=== PATIENT | female | born 1940 | race Caucasian/White ===

== ENCOUNTER 2017-01-14 11:34 | Emergency (ER) | payer SELFPAY ==
[~2017-01-14] VITALS: Ht 154.9 cm; Wt 55.0 kg
[2017-01-14] MEDS ORDERED: OMEP10 PO (11:47)
[2017-01-14] MEDS ORDERED: METF500T4 PO (11:47)
[2017-01-14] MEDS ORDERED: LOSA25TA21 PO (11:47)
[2017-01-14] MEDS ORDERED: ACETAMINOPHEN 325 MG TABLET PO ONE (12:15)
[2017-01-14 13:16] VITALS: BP 185/74
[2017-01-16 09:51] LABS: GLUCOSE,POINT OF CARE 236 MG/DL (70-110)
== END 2017-01-14 13:42 | disposition home or self-care (01) ==
LOC: EMS 11:42
DX: S20.211A Contusion of right front wall of thorax, initial encounter (principal); E11.9 Type 2 diabetes mellitus without complications; I10 Essential (primary) hypertension; V49.50XA Passenger injured in collision with unspecified motor vehicles in traffic accident, initial encounter; Y93.89 Activity, other specified; Y92.89 Other specified places as the place of occurrence of the external cause; Y99.8 Other external cause status
CPT/HCPCS: 82962; 99283

== ENCOUNTER 2017-01-16 12:35 | Emergency (ER) | payer SELFPAY ==
[~2017-01-16] VITALS: Ht 149.9 cm; Wt 63.6 kg
[~2017-01-16 12:35] MED LIST: LOSA25TA21 PO; METF500T4 PO; OMEP10 PO
[2017-01-16 12:47] LABS: GLUCOSE,POINT OF CARE 314 MG/DL (70-110)
[2017-01-16] MEDS ORDERED: LIDOCAINE HCL 5% 36 GM OINTMENT TP ONE (14:30)
[2017-01-16] MEDS ORDERED: LIDOCAINE HCL 5% TRANSDERMAL PATCH TD ONE (14:45)
[2017-01-16 16:13] VITALS: BP 147/81
== END 2017-01-16 16:24 | disposition home or self-care (01) ==
LOC: EMS 12:38
DX: S20.211A Contusion of right front wall of thorax, initial encounter (principal); E11.9 Type 2 diabetes mellitus without complications; I10 Essential (primary) hypertension; V49.9XXA Car occupant (driver) (passenger) injured in unspecified traffic accident, initial encounter; Y93.89 Activity, other specified; Y92.89 Other specified places as the place of occurrence of the external cause; Y99.8 Other external cause status
CPT/HCPCS: 82962; 99282